=== PATIENT | male | born 1950 | race Two or more races ===

== ENCOUNTER → 2018-02-20 | Outpatient (CLI) | payer MEDICARE, OTHER ==
--- NOTE | 2018-02-20 12:23 | RAD ---
EXAM: Renal sonogram. HISTORY: Renal insufficiency. TECHNIQUE: Sonographic imaging of the kidneys and bladder was performed. COMPARISON: None. FINDINGS: The right kidney measures 9.1 cm [id number]. The left kidney measures 9.1 cm [id number]. No solid or cystic renal lesion is seen. There is no hydronephrosis. The prostate is enlarged, measuring 5.0 cm. The bladder is unremarkable. There is suspected hepatic steatosis. IMPRESSION: 1. Low normal renal size. 2. Prostatomegaly. 3. Suspected hepatic steatosis. Electronically signed by: Elaine Gonzales MD (02/20/2018 12:20 PM) [place] [id number]
== END | disposition home or self-care (01) ==
LOC: US 11:31
PROVIDERS: ATTEND Internal Medicine Nephrology
DX: N18.3 Chronic kidney disease, stage 3 (moderate) (principal); N40.0 Benign prostatic hyperplasia without lower urinary tract symptoms
CPT/HCPCS: 76770